=== PATIENT | female | born 2000 | race Caucasian/White ===

== ENCOUNTER 2021-07-19 00:25 | Emergency (ER) | payer MEDICAID ==
[~2021-07-19] VITALS: Ht 152.4 cm; Wt 58.5 kg
--- NOTE | 2021-07-19 00:26 | NUR ---
PT CALLED FOR TRIAGE. PT IN RESTROOM.
--- NOTE | 2021-07-19 00:42 | NUR ---
CALLED PT TO TRIAGE. PT IS IN RESTROOM.
--- NOTE | 2021-07-19 00:49 | NUR ---
CALLED PT TO TRIAGE. PT IS IN RESTROOM.
[2021-07-19 00:56] VITALS: BP 123/98
--- NOTE | 2021-07-19 01:03 | NUR ---
PT TAKEN TO BED 12.
--- NOTE | 2021-07-19 01:07 | NUR ---
PT REFUSED XRAYS OF HAND.
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
[2021-07-19] MEDS ORDERED: LIDOCAINE 2% 1000 MG/50 ML VIAL INJ ONE (02:00)
[2021-07-19] MEDS ORDERED: CEPH-588 PO (03:23)
[2021-07-19] MEDS ORDERED: NAPR-54 PO (03:23)
[2021-07-19 03:40] VITALS: BP 123/98
[2021-07-19] MEDS ORDERED: HYDROcodone/APAP 5/325 MG 1 TAB TAB PO ONE (03:40)
--- NOTE | 2021-07-19 03:42 | NUR ---
Patient discharged with v/s stable. Written and verbal after care instructions given and explained. Patient alert, oriented and verbalized understanding of instructions. Ambulatory with steady gait. All questions addressed prior to discharge. ID band removed. Patient advised to follow up with PMD. Rx of CEPHALEXIN AND NAPROXEN given. Patient educated on indication of medication including possible reaction and side effects. Opportunity to ask questions provided and answered. VSS, A/OX4, AMBULATORY, UNLABORED BREATHING, AND CALM DEMEANOR.
== END 2021-07-19 03:42 | disposition home or self-care (01) ==
LOC: MED 00:25
DX: S62.305A Unspecified fracture of fourth metacarpal bone, left hand, initial encounter for closed fracture (principal); L03.012 Cellulitis of left finger; X58.XXXA Exposure to other specified factors, initial encounter; Y93.89 Activity, other specified; Y92.89 Other specified places as the place of occurrence of the external cause; Y99.8 Other external cause status
CPT/HCPCS: 10060; 73130; 99284; J2001; Q0092

== ENCOUNTER 2021-11-15 21:41 | Emergency (ER) | payer MEDICAID, OTHER ==
[~2021-11-15 21:41] MED LIST: CEPH-588 PO; NAPR-54 PO
--- NOTE | 2021-11-15 21:41 | NUR ---
BIBA TAKEN TO BED #6
--- NOTE | 2021-11-15 21:48 | NUR ---
ATTEMPTED TO ATTACH PT TO CARDIAC MONITORING, PT STATED "I DONT WANT THAT ON ME. IM JUST HERE TO BE SEEN FOR A FOLLOW UP FOR INFECTION." EXPLAINED TO PATIENT THE NECESITY FOR THE CARDIAC MONITORING AND THIS TIME PT STATES "I DONT LIKE HOW I'M BEING TREATED HERE." ATTEMPTED TO REITERATE PROCEDURES AND PT REQUESTED TO LEAVE. PT AMBULATED OUT OF FACILITY AT THIS TIME. PT LEFT WITHOUT BEING SEEN BY DR. ADKINS. Addendum: 11/15/21 at 0312 by GLORIAJ TRIAGE ASSESSMENT NOT COMPLETE D/T PT LEAVING
== END 2021-11-15 22:40 | disposition left against medical advice (07) ==
LOC: MED 21:41
DX: R42 Dizziness and giddiness (principal); Z53.21 Procedure and treatment not carried out due to patient leaving prior to being seen by health care provider

== ENCOUNTER 2022-04-13 21:25 | Emergency (ER) | payer OTHER ==
[~2022-04-13] VITALS: Ht 152.4 cm; Wt 61.2 kg
[2022-04-13 22:18] VITALS: BP 127/93
--- NOTE | 2022-04-13 22:33 | NUR ---
Patient being evaluated by physician in triage
[2022-04-13] MEDS ORDERED: CEPH-588 PO (22:35)
--- NOTE | 2022-04-13 22:35 | NUR ---
Dr. Armas assessing patient.
[2022-04-13 22:38] VITALS: BP 122/85
--- NOTE | 2022-04-13 22:39 | NUR ---
Patient discharged with v/s stable. Written and verbal after care instructions given and explained. Patient alert, oriented and verbalized understanding of instructions. Ambulatory with steady gait. All questions addressed prior to discharge. ID band removed. Patient advised to follow up with PMD. Rx given to patient. Patient educated on indication of medication including possible reaction and side effects. Opportunity to ask questions provided and answered. Patient given food and fluids. Patient used toilet, all needs met, clothing weather appropriate. Patient given homeless packet and stated she is going to "family house."
== END 2022-04-13 22:38 | disposition home or self-care (01) ==
LOC: MED 21:25
DX: L03.011 Cellulitis of right finger (principal); F41.9 Anxiety disorder, unspecified; J45.909 Unspecified asthma, uncomplicated; Z79.899 Other long term (current) drug therapy
CPT/HCPCS: 99283

== ENCOUNTER 2022-05-10 00:58 | Emergency (ER) | payer OTHER ==
[~2022-05-10] VITALS: Ht 152.4 cm; Wt 65.0 kg
[2022-05-10 01:22] VITALS: BP 142/78
--- NOTE | 2022-05-10 01:27 | NUR ---
PT TAKEN TO BED 2
[2022-05-10] MEDS ORDERED: LORazepam 1 MG TAB PO ONE (01:40)
[2022-05-10 02:33] LABS: APPEARANCE,URINE CLEAR (CLEAR); BILIRUBIN,URINE NEGATIVE (NEGATIVE); BLOOD, URINE NEGATIVE (NEGATIVE); COLOR,URINE YELLOW (YELLOW); LEUKOCYTE ESTERASE ,URINE 1+ (NEGATIVE); NITRITE, URINE NEGATIVE (NEGATIVE); UGLUCOSE NEGATIVE (NEGATIVE)
[2022-05-10] MEDS ORDERED: ALBU0.0912 INH (02:36)
--- NOTE | 2022-05-10 02:37 | NUR ---
Patient does not wish to proceed with medical care recommended by WILLIAM. Patient given information related to possible complications, up to and including , which could occur as a result of leaving hospital at this time. Patient verbalizes understanding of risks involved leaving against medical advice. Patient has signed AMA form.
[2022-05-10 02:40] VITALS: BP 142/78
[2022-05-10 02:42] LABS: BARBITURATE, URINE NEGATIVE ng/ml (NEG <=200); BENZODIAZEPINE, URINE NEGATIVE ng/mL (NEG <=200); CANNABINOID, URINE NEGATIVE ng/mL (NEG <=50); COCAINE, URINE NEGATIVE ng/mL (NEG <=300); OPIATE, URINE NEGATIVE ng/mL (NEG <=2000); PHENCYCLIDINE SCREEN,URINE NEGATIVE ng/mL (NEG <=25)
[2022-05-10 02:50] LABS: RBC,URINE 0-5 /HPF (0-5)
[2022-05-10] MEDS ORDERED: CEPH-588 PO (03:28)
[2022-05-11] MEDS ORDERED: HYDR-636 PO (06:13)
== END 2022-05-10 02:37 | disposition home or self-care (01) ==
LOC: MED 00:58
DX: R00.2 Palpitations (principal); F15.90 Other stimulant use, unspecified, uncomplicated; N39.0 Urinary tract infection, site not specified; J45.909 Unspecified asthma, uncomplicated; Z79.899 Other long term (current) drug therapy
CPT/HCPCS: 80305; 81001; 87086; 93005; 99284

== ENCOUNTER 2022-05-11 05:20 | Emergency (ER) | payer OTHER ==
[~2022-05-11] VITALS: Ht 152.4 cm; Wt 59.0 kg
[~2022-05-11 05:20] MED LIST changes: +ALBU0.0912 INH
[2022-05-11 05:40] VITALS: BP 140/84
--- NOTE | 2022-05-11 05:40 | NUR ---
TO BED AMBULATORY
--- NOTE | 2022-05-11 06:08 | NUR ---
pt came here yesterday got discharge and cameback with the same symptom complaining about the panic attack and feel sob.
[2022-05-11] MEDS ORDERED: LORazepam 1 MG TAB PO ONE (06:10)
[2022-05-11] MEDS ORDERED: HYDR-636 PO (06:13)
[2022-05-11 06:31] VITALS: BP 140/84
--- NOTE | 2022-05-11 06:34 | NUR ---
Patient discharged with v/s stable. Written and verbal after care instructions given and explained. Patient verbalized understanding. Ambulatory with steady gait. All questions addressed prior to discharge. Advised to follow up with PMD. pt left with her belonings
== END 2022-05-11 06:31 | disposition home or self-care (01) ==
LOC: MED 05:20
DX: F41.9 Anxiety disorder, unspecified (principal); R00.2 Palpitations; R06.02 Shortness of breath; J45.909 Unspecified asthma, uncomplicated; F17.210 Nicotine dependence, cigarettes, uncomplicated; F15.90 Other stimulant use, unspecified, uncomplicated; Z79.899 Other long term (current) drug therapy; Z71.6 Tobacco abuse counseling
CPT/HCPCS: 93005; 99283

== ENCOUNTER 2022-05-12 18:53 | Emergency (ER) | payer OTHER ==
[~2022-05-12] VITALS: Ht 167.6 cm; Wt 65.8 kg
[~2022-05-12 18:53] MED LIST changes: +HYDR-636 PO
[2022-05-12 19:06] VITALS: BP 132/88
--- NOTE | 2022-05-12 19:14 | NUR ---
PT AMBULATED TO LOBBY
--- NOTE | 2022-05-12 19:18 | NUR ---
PT CALLED TO TRIAGE FOR EKG. PT REFUSED EKG. ERMD MADE AWARE. PT AMBULATED BACK TO [facility]
--- NOTE | 2022-05-12 19:51 | NUR ---
PT REFUSING XRAY PER SALES SECRETARY
--- NOTE | 2022-05-12 20:45 | NUR ---
PATIENT ELOPED FROM FACILITY. DISCHARGE INSTRUCTIONS NOT GIVEN TO PATIENT. DR. Eisenberg NOTIFIED.
== END 2022-05-12 20:45 | disposition left against medical advice (07) ==
LOC: MED 18:53
DX: R00.2 Palpitations (principal); Z53.21 Procedure and treatment not carried out due to patient leaving prior to being seen by health care provider

== ENCOUNTER 2022-06-01 12:49 | Emergency (ER) | payer OTHER ==
--- NOTE | 2022-06-01 14:47 | NUR ---
PT NOWHERE TO BE FOUND CALLED PT @ 1335, 1345, 1400, 1441. PT LEFT WITHOUT BEING SEEN
--- NOTE | 2022-06-01 14:50 | NUR ---
PATIENT LEFT WITHOUT BEING SEEN BY DR. FINNEY. NO FURTHER CARE PROVIDED FOR PATIENT.
== END 2022-06-01 13:35 | disposition left against medical advice (07) ==
LOC: MED 12:49
DX: R22.30 Localized swelling, mass and lump, unspecified upper limb (principal); Z53.21 Procedure and treatment not carried out due to patient leaving prior to being seen by health care provider

== ENCOUNTER 2022-11-28 22:37 | Emergency (ER) | payer MEDICAID, OTHER ==
[~2022-11-28] VITALS: Ht 165.1 cm; Wt 59.0 kg
[2022-11-28 22:43] VITALS: BP 152/81; PULSE 118; RESP 24; TEMP 97.9; O2SAT 100
[2022-11-28 22:45] VITALS: O2SAT 100
[2022-11-28] MEDS ORDERED: PENICILLIN G BENZATHINE C-R 1.2 MU/2 ML SYR IM ONE ×2 (22:55)
[2022-11-28] MEDS ORDERED: LORazepam 2 MG/ML VIAL IM ONE (23:00)
--- NOTE | 2022-11-28 23:01 | NUR ---
PT IN ROOM 8
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
[2022-11-28] MEDS ORDERED: VIB100 PO (23:24)
--- NOTE | 2022-11-28 23:28 | NUR ---
Patient discharged with v/s stable. Written and verbal after care instructions given and explained. Patient verbalized understanding. Ambulatory with steady gait. All questions addressed prior to discharge. Advised to follow up with PMD.
--- NOTE | 2022-11-28 23:59 | NUR ---
The patient's care was reviewed and supervised by Patricia Mcguire RN, RN.
== END 2022-11-28 23:28 | disposition home or self-care (01) ==
LOC: MED 22:37
DX: A53.9 Syphilis, unspecified (principal); F15.10 Other stimulant abuse, uncomplicated; J45.909 Unspecified asthma, uncomplicated; Z79.899 Other long term (current) drug therapy
CPT/HCPCS: 96372; 99283; J2060; J0558

== ENCOUNTER 2023-12-09 17:04 | Emergency (ER) | payer MEDICAID ==
[~2023-12-09] VITALS: Ht 160 cm; Wt 56.7 kg
[~2023-12-09 17:04] MED LIST changes: +NAPR-337 PO; -NAPR-54 PO; +VIB100 PO
[2023-12-09 17:29] VITALS: BP 118/75; PULSE 107; RESP 18; TEMP 97.8; O2SAT 100
[2023-12-09] MEDS ORDERED: CEPH-588 PO (18:54)
[2023-12-09] MEDS ORDERED: IBUP-2213 PO (18:54)
[2023-12-09 19:15] VITALS: BP 118/75; PULSE 107; RESP 18; TEMP 97.8; O2SAT 100
== END 2023-12-09 19:15 | disposition home or self-care (01) ==
LOC: MED 17:04
DX: L03.031 Cellulitis of right toe (principal); S90.31XA Contusion of right foot, initial encounter; J45.909 Unspecified asthma, uncomplicated; Z86.79 Personal history of other diseases of the circulatory system; Z79.1 Long term (current) use of non-steroidal anti-inflammatories (NSAID); Z79.2 Long term (current) use of antibiotics; Z79.899 Other long term (current) drug therapy; X58.XXXA Exposure to other specified factors, initial encounter; Y93.89 Activity, other specified; Y92.89 Other specified places as the place of occurrence of the external cause; Y99.8 Other external cause status
CPT/HCPCS: 73630; 99283; Q0092

== ENCOUNTER 2024-02-03 00:35 | Emergency (ER) | payer MEDICAID ==
[~2024-02-03] VITALS: Ht 152.4 cm; Wt 61.2 kg
[~2024-02-03 00:35] MED LIST changes: +IBUP-2213 PO
[2024-02-03 00:43] VITALS: BP 122/66; PULSE 113; RESP 18; TEMP 98.1; O2SAT 98
[2024-02-03] MEDS: IBUPROFEN 600 MG TAB PO ONE (02:17)
[2024-02-03 02:19] VITALS: BP 122/66; PULSE 113; RESP 18; TEMP 98.1
[2024-02-03 02:20] VITALS: O2SAT 98
== END 2024-02-03 02:19 | disposition home or self-care (01) ==
LOC: MED 00:35
DX: S13.9XXA Sprain of joints and ligaments of unspecified parts of neck, initial encounter (principal); J45.909 Unspecified asthma, uncomplicated; I10 Essential (primary) hypertension; Z79.899 Other long term (current) drug therapy; Y04.0XXA Assault by unarmed brawl or fight, initial encounter; Y92.89 Other specified places as the place of occurrence of the external cause; Y93.89 Activity, other specified; Y99.8 Other external cause status
CPT/HCPCS: 99283

== ENCOUNTER 2024-03-05 10:15 | Emergency (ER) | payer MEDICAID ==
[~2024-03-05] VITALS: Ht 152.4 cm; Wt 61.7 kg
[2024-03-05 10:16] VITALS: BP 118/71; PULSE 56; RESP 20; TEMP 98.1; O2SAT 98
[2024-03-05 10:17] VITALS: BP 122/79; PULSE 102; RESP 16; TEMP 98.1; O2SAT 100
[2024-03-05] MEDS: ACETAMINOPHEN 325 MG TAB PO ONE (11:00)
[2024-03-05 12:30] VITALS: BP 121/78; PULSE 98; RESP 16; TEMP 98.1; O2SAT 99
== END 2024-03-05 12:30 | disposition home or self-care (01) ==
LOC: MED 10:15
DX: S06.0X0A Concussion without loss of consciousness, initial encounter (principal); S00.83XA Contusion of other part of head, initial encounter; J45.909 Unspecified asthma, uncomplicated; Z79.899 Other long term (current) drug therapy; Y04.2XXA Assault by strike against or bumped into by another person, initial encounter; Y93.89 Activity, other specified; Y92.89 Other specified places as the place of occurrence of the external cause; Y99.8 Other external cause status
CPT/HCPCS: 70450; 99284